=== PATIENT | female | born 2000 ===

== ENCOUNTER 2021-07-20 02:34 | Inpatient (IN) | payer BC, MEDICAID ==
[2021-07-20] MEDS: Lactated Ringers 1,000 ML IV SCH ×4 (03:05→14:26)
[2021-07-20] MEDS ORDERED: Lidocaine 1% 50 ML MDV INJECT PRN (04:07)
[2021-07-20] MEDS ORDERED: Misoprostol 200 MCG Tab PO PRN (04:07)
[2021-07-20] MEDS ORDERED: Tranexamic Acid 1,000 MG in Sodium Chloride 0.9% 100 ML IV PRN (04:07)
[2021-07-20] MEDS ORDERED: Sodium Chloride 0.9% 10 ML Syringe FLUSH PRN (04:07)
[2021-07-20] MEDS ORDERED: Water For Irrigation,Sterile 1,000 ML Container IRR PRN (04:07)
[2021-07-20] MEDS ORDERED: Methylergonovine 0.2 MG/1 ML Amp IM PRN (04:07)
[2021-07-20] MEDS ORDERED: Nalbuphine 10 MG/1 ML Vial IVPUSH PRN (04:07)
[2021-07-20] MEDS ORDERED: Sodium Chloride 0.9% 10 ML SDV IV PRN (04:07)
[2021-07-20] MEDS ORDERED: Carboprost Tromethamine 250 MCG/1 ML Amp IM PRN (04:07)
[2021-07-20] MEDS ORDERED: Sodium Chloride 0.9% 2.5 ML Syringe FLUSH PRN (04:07)
[2021-07-20] MEDS ORDERED: Misoprostol 25 MCG (1/4 of 100 MCG) Tab PO PRN (04:10)
[2021-07-20] MEDS ORDERED: Terbutaline 1 MG/ML SDV SUBCUT PRN (04:10)
[2021-07-20] MEDS ORDERED: Misoprostol 25 MCG (1/4 of 100 MCG) Tab VAG PRN (04:10)
[2021-07-20] MEDS ORDERED: Clindamycin Phosphate in D5W 900 MG in Premix Bag 1 BAG IV SCH ×2 (04:15)
[2021-07-20] MEDS ORDERED: Oxytocin/0.9 % Sodium Chloride 30 UNIT/500 ML BAG IV SCH ×2 (04:15)
[2021-07-20] MEDS ORDERED: Ampicillin 2 GM in Sodium Chloride 0.9% 100 ML IV ONE (05:28)
[2021-07-20] MEDS ORDERED: Ampicillin 1 GM in Sodium Chloride 0.9% 50 ML IV SCH (05:45)
[2021-07-20] MEDS: Ampicillin 1 GM in Sodium Chloride 0.9% 50 ML IV SCH ×2 (10:12→13:50)
--- NOTE | 2021-07-20 10:42 | PCM.LDHP ---
L&D History of Present Illness - General Date of Service: 07/20/21 Admit Problem/Dx: Patient Status Order with Admit Dx/Problem 07/20/21 04:07 Patient Status [ADT] Routine Admission Diagnosis/Problem Admission Diagnosis/Problem Source of Information: Patient History Limitations: Reports: No Limitations - History of Present Illness Improves with: Reports: None Worsens with: Reports: None Associated Symptoms: Reports: N - Related Data Allergies/Adverse Reactions: Allergies Allergy/AdvReac Type Severity Reaction Status Date / Time Estrogens Allergy Other Verified 07/20/21 04:06 latex Allergy Rash Verified 07/20/21 04:06 Penicillins Allergy Other Verified 07/20/21 04:06 Home Medications: Home Meds Acetaminophen [Tylenol] 325 mg PO 05/17/21 [History] H&P Review of Systems - Review of Systems: Review Of Systems: See Below General: Reports: No Symptoms HEENT: Reports: No Symptoms Pulmonary: Reports: No Symptoms Cardiovascular: Reports: No Symptoms Gastrointestinal: Reports: No Symptoms Genitourinary: Reports: No Symptoms Musculoskeletal: Reports: No Symptoms Skin: Reports: No Symptoms Psychiatric: Reports: No Symptoms Neurological: Reports: No Symptoms Hematologic/Lymphatic: Reports: No Symptoms Immunologic: Reports: No Symptoms L&D Exam - Exam Exam: See Below - Vital Signs Weight: 85.275 kg - OB Specific Contraction Intensity: Moderate to Strong Movement: Active Heart Tones: Present Presentation: Vertex - Minaya Score Minaya Score Cervix Position: Anterior Minaya Score Consistency: Soft Minaya Score Effacement: >80% Minaya Score Dilation: 3-4 cm Minaya Score 's Station: -3 Minaya Score Total: 9 - Exam General: Alert, Oriented HEENT: PERRLA, Conjunctiva Clear, EACs Clear, EOMI, Hearing Intact, Mucosa Moist & [place], Nares Patent, Normal Nasal Septum, Posterior Pharynx Clear, TMs Clear Neck: Supple, Trachea Midline Lungs: Clear to Auscultation, Normal Respiratory Effort Cardiovascular: Regular Rate, Regular Rhythm GI/Abdominal Exam: Normal Bowel Sounds, Soft, Non-Tender, No Organomegaly, No Distention, No Abnormal Bruit, No Mass, Pelvis Stable Rectal Exam: Normal Exam, Normal Rectal Tone Genitourinary: Normal external exam, Normal bimanual exam, Normal speculum exam Back Exam: Normal Inspection, Full Range of Motion Extremities: Normal Inspection, Normal Range of Motion, Non-Tender, No Pedal Edema, Normal Capillary Refill Skin: Warm, Dry, Intact Neurological: Cranial Nerves Intact, Reflexes Equal Bilateral Psychiatric: Alert, Normal Affect, Normal Mood - Patient Data Lab Results Last 24 hrs: Laboratory Results - last 24 hr 07/20/21 07/20/21 07/20/21 Range/Units 03:05 03:05 03:20 WBC 12.29 H (4.0-11.0) K/uL RBC 4.18 L (4.30-5.90) M/uL Hgb 11.9 L (12.0-16.0) g/dL Hct 35.4 L (36.0-46.0) % MCV 84.7 (80.0-98.0) fL MCH 28.5 (27.0-32.0) pg MCHC 33.6 (31.0-37.0) g/dL RDW Std Deviation 40.6 (28.0-62.0) fl RDW Coeff of Yanci 13 (11.0-15.0) % Plt Count 260 (150-400) K/uL MPV 11.60 (7.40-12.00) fL Nucleated RBC % 0.0 /100WBC Nucleated RBCs # 0 K/uL SARS-CoV-2 RNA (YASMEEN) NEGATIVE (NEGATIVE) Blood Type A POSITIVE Antibody Screen NEGATIVE Result Diagrams: 07/20/21 03:05 Problem List Initiated/Reviewed/Updated: Yes Orders Last 24hrs: Active Orders 24 hr Category Date Time Status Patient Status [ADT] Routine ADT 07/20/21 04:07 Active Bedrest Bathroom Privileges [RC] ASDIRECTED Care 07/20/21 04:10 Active Communication Order [RC] ASDIRECTED Care 07/20/21 04:10 Active Communication Order [RC] ASDIRECTED Care 07/20/21 04:10 Active Communication Order [RC] ASDIRECTED Care 07/20/21 04:10 Active Heart Tones [RC] CONTINUOUS Care 07/20/21 04:07 Active Non Stress Test [RC] PER UNIT ROUTINE Care 07/20/21 04:07 Active May Shower [RC] ASDIRECTED Care 07/20/21 04:07 Active Notify Provider [RC] PRN Care 07/20/21 04:07 Active Notify Provider [RC] PRN Care 07/20/21 04:10 Active Notify Provider [RC] PRN Care 07/20/21 04:10 Active Notify Provider [RC] STAT Care 07/20/21 04:10 Active Oxygen Therapy [RC] ASDIRECTED Care 07/20/21 04:10 Active Up ad Susana [RC] ASDIRECTED Care 07/20/21 04:07 Active Vaginal Exam [RC] PRN Care 07/20/21 04:07 Active Vaginal Exam [RC] PRN Care 07/20/21 04:10 Active Vital Signs [RC] PER UNIT ROUTINE Care 07/20/21 04:07 Active Vital Signs [RC] PER UNIT ROUTINE Care 07/20/21 04:10 Active RPR (SYPHILIS SERO) W/ RFLX [REF] Routine Lab 07/20/21 03:05 Received Ampicillin 1 gm Med 07/20/21 09:30 Active Sodium Chloride 0.9% [Normal Saline AdvBag] 50 ml IV Q4H Butorphanol [Stadol] Med 07/20/21 04:07 Active 1 mg IVPUSH Q1H PRN Carboprost Tromethamine [Hemabate DS] Med 07/20/21 04:07 Active 250 mcg IM ASDIRECTED PRN Clindamycin Phosphate in D5W [Cleocin in D5W 900 MG/50 Med 07/20/21 04:15 Active ML] 900 mg Premix Bag 1 bag IV Q8H Lactated Ringers [Ringers, Lactated] 1,000 ml Med 07/20/21 04:15 Active IV ASDIRECTED Lidocaine 1% [Xylocaine 1%] Med 07/20/21 04:07 Active 50 ml INJECT ONETIME PRN Methylergonovine [Methergine] Med 07/20/21 04:07 Active 0.2 mg IM ASDIRECTED PRN Nalbuphine [Nubain] Med 07/20/21 04:07 Active 10 mg IVPUSH Q1H PRN Oxytocin/0.9 % Sodium Chloride [Oxytocin 30 Unit in NS Med 07/20/21 04:15 Active 0.9% 500 ML Premix] 30 unit in 500 ml IV TITRATE Oxytocin/0.9 % Sodium Chloride [Oxytocin 30 Unit in NS Med 07/20/21 04:15 Active 0.9% 500 ML Premix] 30 unit in 500 ml IV TITRATE Sodium Chloride 0.9% [Normal Saline] Med 07/20/21 04:07 Active 10 ml IV ASDIRECTED PRN Sodium Chloride 0.9% [Saline Flush] Med 07/20/21 04:07 Active 10 ml FLUSH ASDIRECTED PRN Sodium Chloride 0.9% [Saline Flush] Med 07/20/21 04:07 Active 2.5 ml FLUSH ASDIRECTED PRN Terbutaline [Brethine] Med 07/20/21 04:10 Active 0.25 mg SUBCUT ASDIRECTED PRN Tranexamic Acid [Cyklokapron] 1,000 mg Med 07/20/21 04:07 Active Sodium Chloride 0.9% [Normal Saline] 100 ml IV ONETIME Water For Irrigation,Sterile [Sterile Water for Med 07/20/21 04:07 Active Irrigation] 1,000 ml IRR ASDIRECTED PRN miSOPROStoL [Cytotec] Med 07/20/21 04:07 Active 200 mcg PO ONETIME PRN miSOPROStoL [Cytotec] Med 07/20/21 04:10 Active 25 mcg PO Q6HR PRN miSOPROStoL [Cytotec] Med 07/20/21 04:10 Active 25 mcg VAG Q6HR PRN Scalp Electrode [WOMSER] Per Unit Routine Oth 07/20/21 04:07 Ordered Medication Administration Instruction [OM.PC] Q3H Oth 07/20/21 04:15 Ordered Peripheral IV Insertion Adult [OM.PC] Routine Oth 07/20/21 04:07 Ordered Resuscitation Status Routine Resus Stat 07/20/21 04:07 Ordered Medication Orders Butorphanol Tartrate (Butorphanol 1 Mg/Ml Sdv) 1 mg IVPUSH Q1H PRN PRN Reason: Pain (severe 7-10) Carboprost Tromethamine (Carboprost Tromethamine 250 Mcg/1 Ml Amp) 250 mcg IM ASDIRECTED PRN PRN Reason: Post Hemorrhage Oxytocin/Sodium Chloride (Oxytocin 30 Unit In Ns 0.9% 500 Ml Premix) 30 unit in 500 mls @ 500 mls/hr IV TITRATE SEAN Tranexamic Acid 1,000 mg/ (Sodium Chloride) 110 mls @ 660 mls/hr IV ONETIME PRN PRN Reason: Bleeding Lactated Ringer's (Ringers, Lactated) 1,000 mls @ 150 mls/hr IV ASDIRECTED SEAN Last Admin: 07/20/21 04:30 Dose: 150 mls/hr Documented by: Infusion: 07/20/21 04:06 Dose: 999 mls/hr Documented by: Admin: 07/20/21 03:05 Dose: 999 mls/hr Documented by: SARAH Oxytocin/Sodium Chloride (Oxytocin 30 Unit In Ns 0.9% 500 Ml Premix) 30 unit in 500 mls @ 2 mls/hr IV TITRATE SEAN; Protocol Clindamycin Phosphate 900 mg/ (Premix) 50 mls @ 100 mls/hr IV Q8H SEAN Ampicillin Sodium 1 gm/ Sodium (Chloride) 50 mls @ 100 mls/hr IV Q4H SEAN Last Admin: 07/20/21 10:12 Dose: 100 mls/hr Documented by: KATHY Lidocaine HCl (Lidocaine 1% 50 Ml Mdv) 50 ml INJECT ONETIME PRN PRN Reason: Laceration repair Methylergonovine Maleate (Methylergonovine 0.2 Mg/1 Ml Amp) 0.2 mg IM ASDIRECTED PRN PRN Reason: Post Hemorrhage Misoprostol (Misoprostol 200 Mcg Tab) 200 mcg PO ONETIME PRN PRN Reason: Post Hemorrhage Misoprostol (Misoprostol 25 Mcg (1/4 Of 100 Mcg) Tab) 25 mcg VAG Q6HR PRN PRN Reason: Cervical Ripening Last Admin: 07/20/21 10:20 Dose: 25 mcg Documented by: KATHY Misoprostol (Misoprostol 25 Mcg (1/4 Of 100 Mcg) Tab) 25 mcg PO Q6HR PRN PRN Reason: Cervical Ripening Last Admin: 07/20/21 10:21 Dose: 25 mcg Documented by: KATHY Nalbuphine HCl (Nalbuphine 10 Mg/1 Ml Vial) 10 mg IVPUSH Q1H PRN PRN Reason: Pain (severe 7-10) Sodium Chloride (Sodium Chloride 0.9% 10 Ml Syringe) 10 ml FLUSH ASDIRECTED PRN PRN Reason: Keep Vein Open Sodium Chloride (Sodium Chloride 0.9% 2.5 Ml Syringe) 2.5 ml FLUSH ASDIRECTED PRN PRN Reason: Keep Vein Open Sodium Chloride (Sodium Chloride 0.9% 10 Ml Sdv) 10 ml IV ASDIRECTED PRN PRN Reason: IV Use Sterile Water (Water For Irrigation,Sterile 1,000 Ml Container) 1,000 ml IRR ASDIRECTED PRN PRN Reason: delivery Terbutaline Sulfate (Terbutaline 1 Mg/Ml Sdv) 0.25 mg SUBCUT ASDIRECTED PRN PRN Reason: Tacysystole Assessment/Plan Comment:: Admitted for social induction.
[2021-07-20] MEDS: Butorphanol 1 MG/ML SDV IVPUSH PRN ×2 (11:41→13:48)
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
[2021-07-20] MEDS ORDERED: Ondansetron 4 MG/2 ML SDV IVPUSH PRN (15:08)
[2021-07-20] MEDS ORDERED: Ibuprofen 400 MG Tab PO PRN (18:26)
[2021-07-20] MEDS ORDERED: Acetaminophen 500 MG Tab PO PRN (18:26)
[2021-07-20] MEDS ORDERED: Bisacodyl 10 MG Supp RECTAL PRN (18:26)
[2021-07-20] MEDS ORDERED: Lanolin 100% Cream 7 GM Tube TOP PRN (18:26)
[2021-07-20] MEDS ORDERED: oxyCODONE 5 MG Tab PO PRN (18:26)
[2021-07-20] MEDS: Witch Hazel Medicated Pads 40/Jar TOP PRN (20:54)
[2021-07-20] MEDS: Benzocaine/Menthol 20%-0.5% Spray 78 GM Cannister TOP PRN (20:55)
[2021-07-21] MEDS: Ibuprofen 800 MG Tab PO PRN ×3 (02:21→20:09)
[2021-07-21] MEDS: Docusate Sodium 100 MG Cap PO PRN ×2 (05:35→20:09)
[2021-07-21] MEDS: Acetaminophen 500 MG Tab PO PRN ×2 (05:36→17:32)
--- NOTE | 2021-07-21 08:16 | OR ---
SURGEON: Ang Gonzalez MD DATE OF PROCEDURE: 07/20/2021 Ms. Renae is a 20-year-old patient primigravida. She is followed in our clinic primarily by our nurse marketing and communications officer service. The patient does have uncomplicated care. Her GBS status was positive. She is admitted for an elective induction, however she started having contraction on her own. At the time of admission, she was 3 to 4 cm with bulging bag of water. She was started on antibiotic appropriately and then later on, she had a spontaneous rupture of the membranes after she had two doses of antibiotic. The patient examined at 10 and she was about 4 to 5, complete, with remaining bulging bag of water. I ruptured that and the patient had regular contractions on her own and then she had occasional heart deceleration. However, the overall assessment of the heart rate was category 1. The patient did not have epidural anesthesia because there was a possibility of history of lupus and other conditions. The patient progressed on her own. She became complete, complete, and she was able to accomplish normal spontaneous vaginal delivery. A male fetus, infant cried immediately. score reported to be 8 and 9. The weight is not available. The placenta delivered spontaneous, complete, and intact. There was a second-degree laceration of the perineum, was repaired with 3-0 Vicryl after infiltrating the area with a copious amount of 1% Xylocaine. Estimated blood loss was 250 to 300 mL. heart rate was category 1. There was no complication in the labor and delivery process of this patient. JESSICA / SHAYLEE /[id number]
--- NOTE | 2021-07-21 16:51 | PCM.PNPP ---
- General Info Date of Service: 07/21/21 Admission Dx/Problem (Free Text): Patient Status Order with Admit Dx/Problem 07/20/21 04:07 Patient Status [ADT] Routine Admission Diagnosis/Problem Admission Diagnosis/Problem Subjective Update: 20yo G2 now P1011 s/p VD @40w2d GA after uncomplicated IOL. Mom and baby are both doing well. No c/o Functional Status: Reports: Pain Controlled - Review of Systems General: Reports: No Symptoms HEENT: Reports: No Symptoms Pulmonary: Reports: No Symptoms Cardiovascular: Reports: No Symptoms Gastrointestinal: Reports: No Symptoms Genitourinary: Reports: No Symptoms Musculoskeletal: Reports: No Symptoms Skin: Reports: No Symptoms Neurological: Reports: No Symptoms Psychiatric: Reports: No Symptoms - General Info Date of Service: 07/21/21 - Patient Data Vital Signs - Most Recent: Last Vital Signs Temp 97.6 F 07/21/21 08:00 Pulse 74 07/21/21 08:00 Resp 18 07/21/21 08:00 BP 117/65 07/21/21 08:00 Pulse Ox 95 07/21/21 08:00 Weight - Most Recent: 85.275 kg Lab Results - Last 24 Hours: Laboratory Results - last 24 hr 07/20/21 07/21/21 Range/Units 03:05 05:13 Hgb 11.1 L (12.0-16.0) g/dL Hct 33.8 L (36.0-46.0) % RPR Non-Reac (Non-Reac) Med Orders - Current: Current Medications Acetaminophen (Acetaminophen 500 Mg Tab) 500 mg PO Q4H PRN PRN Reason: Pain (mild 1-3) Acetaminophen (Acetaminophen 500 Mg Tab) 1,000 mg PO Q4H PRN PRN Reason: Pain (mild 1-3) Last Admin: 07/21/21 05:36 Dose: 1,000 mg Documented by: Benzocaine/Menthol (Benzocaine/Menthol 20%-0.5% [place] 78 Gm Cannister) 78 gm TOP ASDIRECTED PRN PRN Reason: Perineal Comfort Measure Last Admin: 07/20/21 20:55 Dose: 1 can Documented by: Bisacodyl (Bisacodyl 10 Mg Supp) 10 mg RECTAL ONETIME PRN PRN Reason: Constipation Butorphanol Tartrate (Butorphanol 1 Mg/Ml Sdv) 1 mg IVPUSH Q1H PRN PRN Reason: Pain (severe 7-10) Last Admin: 07/20/21 13:48 Dose: 1 mg Documented by: Carboprost Tromethamine (Carboprost Tromethamine 250 Mcg/1 Ml Amp) 250 mcg IM ASDIRECTED PRN PRN Reason: Post Hemorrhage Docusate Sodium (Docusate Sodium 100 Mg Cap) 100 mg PO Q12H PRN PRN Reason: Constipation Last Admin: 07/21/21 05:35 Dose: 100 mg Documented by: Emollient Ointment (Lanolin 100% Cream 7 Gm Tube) 0 gm TOP ASDIRECTED PRN PRN Reason: Sore Nipples Last Admin: 07/20/21 20:54 Dose: 1 tube Documented by: Oxytocin/Sodium Chloride (Oxytocin 30 Unit In Ns 0.9% 500 Ml Premix) 30 unit in 500 mls @ 500 mls/hr IV TITRATE SEAN Tranexamic Acid 1,000 mg/ (Sodium Chloride) 110 mls @ 660 mls/hr IV ONETIME PRN PRN Reason: Bleeding Lactated Ringer's (Ringers, Lactated) 1,000 mls @ 150 mls/hr IV ASDIRECTED SEAN Last Admin: 07/20/21 14:26 Dose: 150 mls/hr Documented by: Oxytocin/Sodium Chloride (Oxytocin 30 Unit In Ns 0.9% 500 Ml Premix) 30 unit in 500 mls @ 2 mls/hr IV TITRATE SEAN; Protocol Last Titration: 07/20/21 18:09 Dose: 999 munits/min, 999 mls/hr Documented by: Clindamycin Phosphate 900 mg/ (Premix) 50 mls @ 100 mls/hr IV Q8H SEAN Ampicillin Sodium 1 gm/ Sodium (Chloride) 50 mls @ 100 mls/hr IV Q4H SEAN Last Admin: 07/20/21 13:50 Dose: 100 mls/hr Documented by: Ibuprofen (Ibuprofen 400 Mg Tab) 400 mg PO Q4H PRN PRN Reason: Pain (mild 1-3) Ibuprofen (Ibuprofen 800 Mg Tab) 800 mg PO Q6H PRN PRN Reason: Cramping Last Admin: 07/21/21 12:07 Dose: 800 mg Documented by: Lidocaine HCl (Lidocaine 1% 50 Ml Mdv) 50 ml INJECT ONETIME PRN PRN Reason: Laceration repair Last Admin: 07/20/21 19:39 Dose: 50 ml Documented by: Methylergonovine Maleate (Methylergonovine 0.2 Mg/1 Ml Amp) 0.2 mg IM ASDIRECTED PRN PRN Reason: Post Hemorrhage Misoprostol (Misoprostol 200 Mcg Tab) 200 mcg PO ONETIME PRN PRN Reason: Post Hemorrhage Misoprostol (Misoprostol 25 Mcg (1/4 Of 100 Mcg) Tab) 25 mcg VAG Q6HR PRN PRN Reason: Cervical Ripening Misoprostol (Misoprostol 25 Mcg (1/4 Of 100 Mcg) Tab) 25 mcg PO Q6HR PRN PRN Reason: Cervical Ripening Nalbuphine HCl (Nalbuphine 10 Mg/1 Ml Vial) 10 mg IVPUSH Q1H PRN PRN Reason: Pain (severe 7-10) Ondansetron HCl (Ondansetron 4 Mg/2 Ml Sdv) 4 mg IVPUSH Q4H PRN PRN Reason: Vomiting Last Admin: 07/20/21 15:53 Dose: 4 mg Documented by: Oxycodone HCl (Oxycodone 5 Mg Tab) 5 mg PO Q2H PRN PRN Reason: Pain (severe 7-10) Sodium Chloride (Sodium Chloride 0.9% 10 Ml Syringe) 10 ml FLUSH ASDIRECTED PRN PRN Reason: Keep Vein Open Sodium Chloride (Sodium Chloride 0.9% 2.5 Ml Syringe) 2.5 ml FLUSH ASDIRECTED PRN PRN Reason: Keep Vein Open Sodium Chloride (Sodium Chloride 0.9% 10 Ml Sdv) 10 ml IV ASDIRECTED PRN PRN Reason: IV Use Sterile Water (Water For Irrigation,Sterile 1,000 Ml Container) 1,000 ml IRR ASDIRECTED PRN PRN Reason: delivery Terbutaline Sulfate (Terbutaline 1 Mg/Ml Sdv) 0.25 mg SUBCUT ASDIRECTED PRN PRN Reason: Tacysystole Witch Tania (Witch Tania Medicated Pads 40/Jar) 1 pad TOP ASDIRECTED PRN PRN Reason: comfort care Last Admin: 07/20/21 20:54 Dose: 1 tub Documented by: Discontinued Medications Ampicillin Sodium 2 gm/ Sodium (Chloride) 100 mls @ 200 mls/hr IV ONETIME ONE Stop: 07/20/21 05:57 Last Admin: 07/20/21 05:45 Dose: 200 mls/hr Documented by: Ampicillin Sodium 1 gm/ Sodium (Chloride) 50 mls @ 100 mls/hr IV Q4H SEAN - Infant Interaction Support Person: Significant Other - Recovery Exam Fundal Tone: Firm Fundal Level: At Umbilicus Fundal Placement: Midline Lochia Amount: Small Lochia Color: Rubra/Red Perineum Description: Edematous Episiotomy/Laceration: Approximated Bladder Status: Voiding Urinary Elimination: Voided - Exam General: Alert, Oriented Lungs: Normal Respiratory Effort Cardiovascular: Regular Rate Extremities: Normal Inspection Psy/Mental Status: Alert, Normal Affect, Normal Mood - Problem List & Annotations (1) Term delivered SNOMED Code(s): 46460185, 810963864 Code(s): O80 - ENCOUNTER FOR FULL-TERM UNCOMPLICATED DELIVERY Status: Acute Priority: High Current Visit: Yes - Problem List Review Problem List Initiated/Reviewed/Updated: Yes - Plan Plan:: 20yo G2 now P1011 s/p VD @40w2d GA after uncomplicated IOL P: continue routine care
[2021-07-22] MEDS: Ibuprofen 800 MG Tab PO PRN ×2 (08:54→17:29)
[2021-07-22] MEDS: Acetaminophen 500 MG Tab PO PRN ×2 (08:55→17:29)
[2021-07-22] MEDS: Docusate Sodium 100 MG Cap PO PRN (08:56)
[2021-07-22] MEDS: Witch Hazel Medicated Pads 40/Jar TOP PRN (17:28)
[2021-07-22] MEDS: Benzocaine/Menthol 20%-0.5% Spray 78 GM Cannister TOP PRN (17:28)
== END 2021-07-22 19:23 | disposition home or self-care (01) | DRG 560 ==
LOC: MW.OB 02:34 → OBSVTOIN 18:26 → MW.OB 18:26
PROVIDERS: ADMIT Obstetrics & Gynecology Obstetrics; ATTEND Obstetrics & Gynecology Obstetrics
PROC: 10E0XZZ Delivery of Products of Conception, External Approach (ICD-10-PCS; principal; 2021-07-20)
PROC: 0KQM0ZZ Repair Perineum Muscle, Open Approach (ICD-10-PCS; 2021-07-20)
DX: O48.0 Post-term pregnancy (principal); Z37.0 Single live birth; O99.824 Streptococcus B carrier state complicating childbirth; O70.1 Second degree perineal laceration during delivery; Z20.822 Contact with and (suspected) exposure to COVID-19; Z3A.40 40 weeks gestation of pregnancy; Z90.49 Acquired absence of other specified parts of digestive tract
CPT/HCPCS: 36415; 59025; 59409; 85014; 85018; 85027; 86592; 86850; 86900; 86901; A9270-GY; J0290; J0595; J2001; J2405; J2590; J7120; U0002